=== PATIENT | male | born 1960 | race African-American/Black ===

== ENCOUNTER 2016-11-09 20:47 | Emergency (ER) | payer OTHER ==
[~2016-11-09] VITALS: Ht 170.2 cm; Wt 74.8 kg
--- NOTE | 2016-11-09 20:50 | NUR ---
TO BED 15 A 56 YO MALE [facility]RA AND PER EMS, PATIENT WAS "FOUND AT [facility] WALKING AROUND; TOOK [facility]ETH 6HOURS AGO; ANXIOUS." PATIENT IS RESTLESS, IRRITABLE, PARANOID EVIDENCE OF SCREAMING FOR SECURITY TO WATCH HIM. TACHYCARDIC. INITIATED SAFETY MEASURES. REORIENTATION DONE. WILL CLOSELY MONITOR.
[2016-11-09] MEDS ORDERED: LORAZEPAM INJ 2 MG/ML VIAL IM ONE (21:00)
[2016-11-09] MEDS ORDERED: LORAZEPAM INJ 2 MG/ML VIAL ONE ×2 (21:01→22:58)
[2016-11-09] MEDS ORDERED: IV NS 0.9% 1,000 ML ONE ×2 (21:27→22:25)
[2016-11-09] MEDS ORDERED: IV SET PRIMARY 1 EA INFUS.SET MC ONE ×2 (21:27→22:25)
[2016-11-09] MEDS ORDERED: OLANZAPINE 10 MG VIAL IM ONE ×3 (21:30→22:00)
[2016-11-09] MEDS ORDERED: IV NS 0.9% 1,000 ML BAG IV ONE ×2 (21:30→22:00)
[2016-11-09 21:34] LABS: BASOPHILS # (AUTO) 0.3 /CMM (0.0-0.2); BASOPHILS % (AUTO) 2.7 % (0.0-2.0); EOSINOPHILS % (AUTO) 0.2 % (0.0-6.0); HEMATOCRIT 49 % (39-51); HEMOGLOBIN 16.1 g/dL (13.5-17.5); LYMPHOCYTES # (AUTO) 1.5 /CMM (0.8-4.8); LYMPHOCYTES % (AUTO) 14.9 % (20.0-44.0); MEAN CORPUSCULAR HEMOGLOBIN 28 PG (26.0-33.0); MEAN CORPUSCULAR HGB CONC 33 g/dl (31.0-36.0); MEAN CORPUSCULAR VOLUME 84 fL (80-96); MONOCYTES # (AUTO) 0.5 /CMM (0.1-1.30); MONOCYTES % (AUTO) 4.9 % (2.0-12.0); NEUTROPHILS # (AUTO) 7.8 /CMM (1.8-8.9); NEUTROPHILS % (AUTO) 77.3 % (43.0-81.0); PLATELET COUNT (AUTO) 283 /CMM (150-450); RDW COEFFICIENT OF VARIATION 13.5 (11.5-15.0); RED BLOOD CELL COUNT(AUTO) 5.86 MIL/uL (4.5-6.0); WHITE BLOOD COUNT (AUTO) 10.1 K/uL (4.3-11.0)
[2016-11-09 21:42] LABS: CALCIUM, SERUM 9.5 mg/dL (8.5-10.1); CARBON DIOXIDE 26 mmol/L (21-32); CHLORIDE 102 mmol/L (98-107); CREATININE 1.5 mg/dL (0.6-1.3); GFR 59 mL/min (>60); GLUCOSE 120 mg/dL (74-106); POTASSIUM 3.9 mmol/L (3.5-5.1); SODIUM SERUM 140 mmol/L (136-145); UREA NITROGEN, BLOOD 20 mg/dL (7-18)
[2016-11-09] MEDS ORDERED: WATER FOR INJECTION,STERILE 10 ML ONE (21:42)
[2016-11-09] MEDS ORDERED: diphenhydrAMINE HCL 50 MG/ML VIAL ONE (21:46)
[2016-11-09 21:48] LABS: ALANINE AMINOTRANSFERASE 58 U/L (12-78); ALBUMIN 4.8 g/dL (3.4-5.0); ALCOHOL, BLOOD 15 mg/dL (0-0); ALKALINE PHOSPHATASE 81 U/L (46-116); ASPARTATE AMINOTRANSFERASE 106 U/L (15-37); BILIRUBIN,DIRECT 0.1 mg/dL (0.0-0.2); BILIRUBIN,TOTAL 0.7 mg/dL (0.2-1.0); TOTAL PROTEIN, SERUM 8.8 g/dL (6.4-8.2)
[2016-11-09 21:50] LABS: TROPONIN I < 0.017 ng/mL (0.00-0.056)
[2016-11-09] MEDS ORDERED: LORAZEPAM INJ 2 MG/ML VIAL IV ONE ×2 (22:00→23:00)
[2016-11-09] MEDS ORDERED: diphenhydrAMINE HCL 50 MG/ML VIAL IM ONE (22:00)
[2016-11-09] MEDS ORDERED: diphenhydrAMINE HCL 50 MG/ML VIAL IV ONE (22:00)
--- NOTE | 2016-11-09 22:14 | NUR ---
started a saline loc on the right ac g 18.
[2016-11-09] MEDS ORDERED: HALOPERIDOL LACTATE INJ 5 MG/ML VIAL ONE (22:57)
[2016-11-09] MEDS ORDERED: HALOPERIDOL LACTATE INJ 5 MG/ML VIAL IV ONE (23:00)
--- NOTE | 2016-11-09 23:50 | NUR ---
PATIENT IS SLEEPING AT THIS TIME. SATTING 87% ON ROOM AIR, RR IS 18. PLACED WITH O2 CANNULA AT 3LPM [place], SATTING NOW AT 98%.
[2016-11-10] MEDS ORDERED: IV NS 0.9% 1,000 ML IV ONE (01:55)
[2016-11-10] MEDS ORDERED: IV NS 0.9% 1,000 ML ONE (02:09)
[2016-11-10] MEDS ORDERED: IV SET PRIMARY 1 EA INFUS.SET MC ONE (02:09)
[2016-11-10] MEDS ORDERED: LORAZEPAM INJ 2 MG/ML VIAL ONE (03:13)
--- NOTE | 2016-11-10 05:24 | NUR ---
PATIENT IS SLEEPING COMFORTABLY AT THIS TIME. VSS.
--- NOTE | 2016-11-10 07:33 | NUR ---
Patient is resting comfortably in bed with eyes closed. Easily aroused. VSS
--- NOTE | 2016-11-10 11:08 | NUR ---
REPORT TO [facility]
--- NOTE | 2016-11-10 11:12 | NUR ---
PT ABLE TO AMBULATE WITH STEADY GAIT. IV removed. Catheter intact and site benign. Pressure and 4x4 applied to site. No bleeding noted.
[2016-11-10 11:25] VITALS: BP 124/70
--- NOTE | 2016-11-10 11:25 | NUR ---
Patient discharged to home in stable condition. Written and verbal after care instructions given. Patient verbalizes understanding of instruction.
== END 2016-11-10 11:26 | disposition home or self-care (01) ==
LOC: EDBD 20:48 → ER 20:48
DX: F23 Brief psychotic disorder (principal); F41.9 Anxiety disorder, unspecified; F20.0 Paranoid schizophrenia; F15.10 Other stimulant abuse, uncomplicated; F10.10 Alcohol abuse, uncomplicated; R45.1 Restlessness and agitation; R79.89 Other specified abnormal findings of blood chemistry; E86.0 Dehydration; R74.0 Nonspecific elevation of levels of transaminase and lactic acid dehydrogenase [LDH]
CPT/HCPCS: 80048; 80076; 82550; 82553; 84484; 85025; 93005; 96361; 96372 ×3; 96374; 96375; 99285; A4606; G0480; J1200; J1630; J2060 ×2; J3490; J7030 ×3; Z7610

== ENCOUNTER 2019-04-17 20:46 | Emergency (ER) | payer OTHER ==
[~2019-04-17] VITALS: Ht 172.7 cm; Wt 75.3 kg
[2019-04-17 20:50] VITALS: BP 143/76
[2019-04-17] MEDS ORDERED: QUETIAPINE FUMARATE 25 MG TABLET ONE (21:27)
[2019-04-17] MEDS ORDERED: QUETIAPINE FUMARATE 100 MG TABLET PO ONE (21:30)
== END 2019-04-17 21:40 | disposition home or self-care (01) ==
LOC: ER 20:47
DX: F31.9 Bipolar disorder, unspecified (principal)

== ENCOUNTER 2019-04-18 11:36 | Emergency (ER) | payer OTHER ==
[~2019-04-18] VITALS: Ht 180.3 cm; Wt 100.2 kg
[2019-04-18] MEDS ORDERED: OLANZAPINE 10 MG VIAL IM ONE ×2 (12:00→12:03)
[2019-04-18] MEDS ORDERED: LORAZEPAM INJ 2 MG/ML VIAL IVP ONE (12:00)
[2019-04-18] MEDS ORDERED: LORAZEPAM INJ 2 MG/ML VIAL ONE (12:02)
--- NOTE | 2019-04-18 12:12 | NUR ---
PATIENT BIB EMS WITH [employer] CONFUSE,AGITATION ,HALLUCINATION PROVIDER @ BEDSIDE WITH ORDER
[2019-04-18 12:20] LABS: APPEARANCE,URINE Clear (CLEAR); BILIRUBIN,URINE Negative (NEGATIVE); BLOOD, URINE Moderate Ery/uL (NEGATIVE); COLOR,URINE Yellow (YELLOW); KETONES,URINE Trace (NEGATIVE); LEUKOCYTE ESTERASE ,URINE Negative (NEGATIVE); NITRITE, URINE Negative (NEGATIVE); PH,URINE 5.5 (5.0-8.0); PROTEIN,URINE 30 mg/dl (NEGATIVE); UGLUCOSE Negative (NEGATIVE); UROBILINOGEN,URINE 0.2 EU/dL (0.2)
--- NOTE | 2019-04-18 12:30 | NUR ---
PATIENT AWAKE YELLING ,RACHEL STATED SOME ONE IS LOOKING FOR HIM AND TRY HURT HIM ,PLACE PATIENT ON WRIST RESTRAINT BILATERAL WRIST ,SECURITY PRAKASH AND SITTER @ BEDSIDE ,PLACE GOWN ,MONITOR KEEP CORD CLEAR AND ROOM CHECKED SAFETY DONE
[2019-04-18 12:31] LABS: BACTERIA,URINE 1+ /HPF (None Seen); WBC,URINE 0-2 /HPF (0-3)
[2019-04-18 12:59] LABS: BASOPHILS # (AUTO) 0.1 /CMM (0.0-0.2); BASOPHILS % (AUTO) 0.8 % (0.0-2.0); EOSINOPHILS % (AUTO) 0.3 % (0.0-6.0); HEMATOCRIT 48 % (39-51); HEMOGLOBIN 15.8 g/dL (13.5-17.5); LYMPHOCYTES # (AUTO) 1.2 /CMM (0.8-4.8); LYMPHOCYTES % (AUTO) 12.3 % (20.0-44.0); MEAN CORPUSCULAR HGB CONC 33 g/dl (31.0-36.0); MEAN CORPUSCULAR VOLUME 85 fL (80-96); MONOCYTES # (AUTO) 0.7 /CMM (0.1-1.30); MONOCYTES % (AUTO) 7.8 % (2.0-12.0); NEUTROPHILS # (AUTO) 7.5 /CMM (1.8-8.9); NEUTROPHILS % (AUTO) 78.8 % (43.0-81.0); PLATELET COUNT (AUTO) 197 /CMM (150-450); RED BLOOD CELL COUNT(AUTO) 5.62 MIL/uL (4.5-6.0); WHITE BLOOD COUNT (AUTO) 9.5 K/uL (4.3-11.0)
[2019-04-18 13:07] LABS: CALCIUM, SERUM 9.2 mg/dL (8.5-10.1); CARBON DIOXIDE 25 mmol/L (21-32); CHLORIDE 103 mmol/L (98-107); CREATININE 1.1 mg/dL (0.6-1.3); GLUCOSE 123 mg/dL (74-106); POTASSIUM 3.7 mmol/L (3.5-5.1); SODIUM SERUM 138 mmol/L (136-145); UREA NITROGEN, BLOOD 19 mg/dL (7-18)
[2019-04-18 13:12] LABS: ALANINE AMINOTRANSFERASE 63 U/L (12-78); ALBUMIN 4.3 g/dL (3.4-5.0); ALCOHOL, BLOOD < 3 mg/dL (0-0); ALKALINE PHOSPHATASE 69 U/L (46-116); ASPARTATE AMINOTRANSFERASE 71 U/L (15-37); BILIRUBIN,DIRECT 0.1 mg/dL (0.0-0.2); BILIRUBIN,TOTAL 0.7 mg/dL (0.2-1.0); TOTAL PROTEIN, SERUM 7.9 g/dL (6.4-8.2)
[2019-04-18 13:13] LABS: ACETAMINOPHEN < 10 ug/ml (10-30); SALICYLATE 0.5 mg/dL (2.8-20.0)
[2019-04-18] MEDS ORDERED: diphenhydrAMINE HCL 50 MG/ML VIAL ONE ×2 (15:53→15:55)
[2019-04-18] MEDS ORDERED: diphenhydrAMINE HCL 50 MG/ML VIAL IV ONE (16:00)
--- NOTE | 2019-04-18 16:04 | NUR ---
PATIENT EYES WIDE OPEN ,AWAKE CONFUSE ,YELLING STATED SOME ONE TRING TO HURT HIM ,PROVIDER AWARE WITH ORDER
--- NOTE | 2019-04-18 18:13 | NUR ---
PATIENT AWAKE VERY CONFUSED NOTED HALLUCINATION VITALS TAKEN AND FILED HR [id number] PROVIDER MADE AWARE WITH ORDER
[2019-04-18] MEDS ORDERED: IV NS 0.9% 1,000 ML BAG IV ONE (18:30)
--- NOTE | 2019-04-18 19:27 | NUR ---
TRANSFER CARER REPORT TO Tarsha GRANT rN
--- NOTE | 2019-04-18 19:30 | NUR ---
Assumed care of pt. pt sitting up in bed w/ resp even & unlabored, no acute distress noted. Bed low to ground w/ siderails up for safety. Will continue to monitor. vangie Robert remains at bedside.
--- NOTE | 2019-04-18 21:25 | NUR ---
NO CHANGE IN PT STATUS, LYING SUPINE IN BED W/ RESP EVEN & UNLABORED, ABLE TO REPOSITION SELF IN BED W/ NAD NOTED. ON CONTINUOUS MONITORING W/ BED LOW TO GROUND, SIDERAILS UP FOR SAFETY.
--- NOTE | 2019-04-18 22:26 | NUR ---
PT ACCEPTED AT [facility] BY DR. 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
--- NOTE | 2019-04-18 22:58 | NUR ---
REPORT GIVEN TO VALARIE RAMIREZ AT [facility].
[2019-04-19] MEDS ORDERED: LORAZEPAM INJ 2 MG/ML VIAL ONE (00:03)
--- NOTE | 2019-04-19 00:10 | NUR ---
Pt escorted to restroom w/ security, becoming anxious and paranoid, states "there's someone there." Looking up in ceiling, refusing to use the restroom. pt escorted back to bed, ambulatory w/ steady gait. Dr. Elliott updated on pt status and medicated as ordered for anxiety. Bed low to ground w/ siderails up. Sitter at bedside.
--- NOTE | 2019-04-19 00:13 | NUR ---
Pt requesting for to be called, but unable to give correct phone number to call for .
[2019-04-19] MEDS ORDERED: LORAZEPAM INJ 2 MG/ML VIAL IV ONE (01:00)
--- NOTE | 2019-04-19 01:05 | NUR ---
Pt pulled out IVHL, restless unable to lie still in bed, continues to have visual hallucinations, looking up to ceiling, reoriented and redirected patient, on continuous monitoring. Dry gauze dressing w/ pressure applied to IVHL site rt hand w/ no active bleeding noted.
--- NOTE | 2019-04-19 01:09 | NUR ---
[facility] CALLED FOR UPDATE ON ETA. S AMBULANCE 0230.
--- NOTE | 2019-04-19 02:22 | NUR ---
REPORT GIVEN TO GRETEL CASTRO W/ [facility] UN[facility][id number] FOR [facility], PT TRANSFER VIA BLS AMBULANCE IN STABLE CONDITION, RESP EVEN & UNLABORED, NO ACUTE DISTRESS NOTED.
[2019-04-19 02:26] VITALS: BP 121/73
--- NOTE | 2019-04-19 09:53 | NUR ---
SPOKE WITH THE PATIENT AND INFORMED HIM THAT WE HAVE HIS BELONGINGS, AND PATIENT WILL MAIL DISTRIBUTION CLERK. HIS CONTACT# [phone]
== END 2019-04-19 02:38 ==
LOC: ER 11:39
DX: F23 Brief psychotic disorder (principal); F19.10 Other psychoactive substance abuse, uncomplicated; F31.9 Bipolar disorder, unspecified; F10.10 Alcohol abuse, uncomplicated; R00.0 Tachycardia, unspecified; Y90.0 Blood alcohol level of less than 20 mg/100 ml; Z59.0 Homelessness
CPT/HCPCS: 36415; 80048; 80076; 80305; 80307 ×2; 80329; 81001; 85025; 93005; 96372; 96374; 96375; 96376; 99285; G0480; J1200 ×2; J2060 ×2; J3490; J7030; 81000-TC